=== PATIENT | male | born 1940 | race African-American/Black ===

== ENCOUNTER 2017-12-07 15:32 | Inpatient (IN) | payer OTHER ==
[~2017-12-07] VITALS: Ht 180.3 cm; Wt 77.6 kg
--- NOTE | ~2017-12-07 | 2DMMODE ---
[facility] [address] [place] [address] 2 D/M-MODE ECHOCARDIOGRAM Name: RUBA LUNA Room #: 350-P ADM IN M.R.#: [id number] Admission: 12/07/17 Attend Phys: Marlon Verde MD Discharge: Date of : 38 Date of Service: 12/08/17 1141 Report #: [id number] THIS REPORT FOR: //name// APPROVED REPORT Study performed: 12/08/2017 10:43:43 EXAM: Limited 2D, Doppler, and color-flow Echocardiogram Patient Location: Bedside Room #: 350 Status: routine BSA: 1.77 HR: 68 bpm BP: 313/79 mmHg Rhythm: RBBB/PVC's Other Information Study Quality: Adequate Indications Follow-up ABB echo for Stroke. HX: Cardiomyopathy, pericardial effusion, PE, Hypertension, diabetes, HLP. (Complete echo done 09/01/17) Echo Enhancing Agent Indication: Rule out Shunt Agent(s) / Amount(s) Used: Agitated Saline 6 cc 2D Dimensions IVSd: 9.36 (7-11mm) LVDd: 64.53 mm PWd: 14.82 (7-11mm) LVDs: 46.62 (25-40mm) Aortic Valve AoV Peak Arsenio.: 2.43 m/s AO Peak Gr.: 23.70 mmHg AO Mean Gr.: 12.96 mmHg AO V2 Mean: 1.74 m/s AO V2 VTI: 48.17 cm Tricuspid Valve TR Peak Arsenio.: 2.57 m/s RAP Estimate: 5.00 mmHg TR Peak Gr.: 26.47 mmHg PA Pressure: 31.00 mmHg [facility] [address] [place] [address] 2 D/M-MODE ECHOCARDIOGRAM Name: RUBA LUNA Room #: 350-P ADM IN ..#: [id number] Admission: 12/07/17 Attend Phys: Marlon Verde MD Discharge: Date of : 38 Date of Service: 12/08/17 1141 Report #: [id number] Left Ventricle Left ventricle is dilated. Regional wall motion abnormalities are noted. Left ventricular systolic function is moderate to severely decreased. LVEF is 30-35%. Right Ventricle The right ventricle is normal size. Atria No shunting noted by contrast bubble injection. Aortic Valve Aortic valve leaflets are moderately thickened and calcified. Trace aortic regurgitation. There is a mild decrease in aortic valve excursion with a peak gradient of 24mmHg and a mean of 13mmHg. Mitral Valve Mitral valve leaflets are mildly thickened. Mild mitral regurgitation. No evidence of mitral valve stenosis. Tricuspid Valve The tricuspid valve is normal in structure. Mild tricuspid regurgitation. Estimated PAP is 30-35mmHg. Great Vessels IVC is normal in size and collapses >50% with inspiration. Pericardium Small pericardial effusion. <Conclusion> Left ventricle is dilated. Regional wall motion abnormalities are noted. LVEF is 30-35%. No shunting noted by contrast bubble injection. Aortic valve leaflets are moderately thickened and calcified. Trace aortic regurgitation. There is a mild decrease in aortic valve excursion with a peak gradient of 24mmHg and a mean of 13mmHg. Mitral valve leaflets are mildly thickened. Mild mitral regurgitation. The tricuspid valve is normal in structure. [facility] [place] [address] 2 D/M-MODE ECHOCARDIOGRAM Name: RUBA LUNA Room #: 350-P ADM IN M.R.#: [id number] Admission: 12/07/17 Attend Phys: Marlon Verde MD Discharge: Date of : 38 Date of Service: 12/08/17 114 Report #: [id number] Mild tricuspid regurgitation. Estimated PAP is 30-35mmHg. Small pericardial effusion. <ELECTRONICALLY SIGNED> By: Perry Schofield MD 12/08/17 114 40 40 Perry Schofield MD /INF
--- NOTE | ~2017-12-07 | HC ---
[facility] [place] [address] [address] CONSULTATION Name: RUBA LUNA Room #: 350-P ADM IN M.R.#: [id number] Admission: 12/07/17 Attend Phys: Marlon Verde MD Discharge: Date of : 38 Report #: [id number] THIS REPORT FOR: //name// CC: Marlon Verde [facility] physician/PCP HISTORY OF PRESENT ILLNESS: The patient is a 77-year-old male who was making dinner with his daughter when he suddenly had slurred speech and left arm weakness. As the patient was en route, EMS noted a left facial droop. The patient has a history of pancreatic cancer and does not receive treatment for his condition. He is on Xarelto and in the Emergency Room he had a CT scan of the head and an MRI of the head. The MRI of the head demonstrated an acute infarction involving the posterior temporal and occipital lobe with associated edema, some cortical petechial hemorrhage was seen within the occipital lobe, punctate cortical infarcts were seen in the contralateral right occipital lobe. Punctate lacunar infarcts were seen in the left periventricular white matter. Subtle right mid brain infarct of unknown etiology was seen. The radiologist recommended a repeat scan in 3 months to rule out the possibility of an underlying mass. Last night, the nurse called me stating that the patient seemed to have more slurred speech. I asked for a repeat CT scan head. There was no significant change. This morning, the patient is able to carry on a limited conversation. His speech seems clear. PAST MEDICAL HISTORY: DVT, pancreatic cancer, hypertension, hyperlipidemia. PAST SURGICAL HISTORY: Unremarkable. MEDICATIONS: Levemir 8 units at bedtime, Xarelto 15 mg b.i.d., Coreg 6.25 mg b.i.d., Zocor 40 mg in the evening, Zestril 30 mg daily, loperamide 2 mg as needed, vitamin D 50,000 units daily, Bee Pollen 550 mg daily, vitamin B12 1000 mcg IM daily, fish oil 1000 mg daily, multivitamin daily. ALLERGIES: None. PHYSICAL EXAMINATION: VITAL SIGNS: Temperature is 36.7, pulse rate 83, respiratory rate 20, blood pressure 131/79, bedside pulse oximetry 100% on 2 liters. NEUROLOGIC: Cranial nerves 2-12 are grossly intact. The patient has a right gaze preference. Motor exam demonstrates a moderate right hemiparesis with the arm more affected than the leg. Reflexes demonstrate a left reflex preponderance. Coordination and gait were not tested. LABORATORY DATA: Hematology: White blood cell count 6.3, hemoglobin 7.8, [place] [id number] CONSULTATION Name: RUBA LUNA Room #: 350-[facility] IN ..#: [id number] Admission: 12/07/17 Attend Phys: Marlon Verde MD Discharge: Date of : 38 Report #: [id number] hematocrit 23.6, MCV 87.4, platelet count 152,000. PT 15.7, INR 1.5. Chemistry: Sodium 144, potassium 3.3, chloride 107, carbon dioxide 25, BUN 13, creatinine 1, GFR 88, glucose 107, calcium 8.6. IMPRESSION AND PLAN: This patient has had a left temporal/occipital lobe infarct. There is evidence of intraparenchymal hemorrhage. Xarelto is on hold. At this point, a stroke workup should be done and as the stroke involves the posterior circulation, the next step would be an MRA of the head and neck and echocardiogram. I have also ordered a lipid profile. Therapies have already been ordered. I thank you for your kind referral of this patient and we will continue to follow him with you. <ELECTRONICALLY SIGNED> By: Connie Trujillo DO 12/09/17 1115 1023 2308 Connie Trujillo DO /nt
--- NOTE | ~2017-12-07 | HC ---
[facility] [place] [address] CONSULTATION Name: RUBA LUNA Room #: 350-P ADM IN M.R.#: [id number] Admission: 12/07/17 Attend Phys: Marlon Verde MD Discharge: Date of : 38 Report #: [id number] THIS REPORT FOR: //name// CC: Marlon Verde MD [facility] physician/PCP Connie Card MD REASON FOR CONSULTATION: History of pancreatic cancer and recent stroke. HISTORY OF PRESENT ILLNESS: The patient is a very pleasant 77-year-old gentleman who I originally met back in January of last year. At that time, he has been found to have a pancreatic head mass at [facility] measuring 4 x 3.5 cm. A fine needle aspirate done at in 02/22 revealed cells favoring adenocarcinoma. His CA 19-9 was greater than 17,000 on 03/03 when I first saw him. We also did a PET scan that unfortunately showed consistent changes with liver metastasis and possible lymph node involvement. At that time, he decided he would favor towards comfort measures and nontraditional therapy. In May of last year, he had an increase in size. The patient was admitted to the hospital because of difficulties with been found to have slurred speech and left-sided weakness at home. He is brought to the hospital, was found to have changes on imaging consistent with a stroke. They had noticed some cortical petechial hemorrhaging within the occipital lobe and also apparent acute infarcts involving the posterior temporal and occipital lobe with associated edema. There was suggestion for repeat scan in 3 months to rule out possible underlying mass. He had a repeat CT head after admission that showed no significant change. At this time, the patient is up in the main hospital floor. He is having trouble speaking. He is also trying to use a bedside commode during initial part of our exam. The patient states that he is having some head pain. Does not have any shortness of air. Does not have any nausea. It is difficult to understand, but I believe that is accurate. REVIEW OF SYSTEMS: Seems to sedated. Prior to admission, he has not had any fevers or chills. There had been some diarrhea. Note that a C. diff is negative in the last 24 hours. No dysuria. His sugars have been okay. PAST MEDICAL HISTORY: Notable for the history of the metastatic pancreatic cancer being treated with nontraditional therapies, also his history is notable for the finding of acute pulmonary embolism back in May. At that time, he was begun on Lovenox and is somewhat later date is switched to Xarelto. Recently, he had an acute DVT found in both legs on 11/29/2017 because of this we switched to Lovenox instead. He also in the past has had an IVC filter placed recently. He also has a history of hyperlipidemia, prostate cancer with completion of therapy in 08/2016, followed by Dr. Gómez Card, also has history of diabetes mellitus type 2, osteoarthritis, GERD, also has a history of an elevated bilirubin in the past. Also, because of the clots in spite of Lovenox and then [facility] [address] [place] [address] CONSULTATION Name: RUBA LUNA Room #: 350-P ADM IN M.R.#: [id number] Admission: 12/07/17 Attend Phys: Marlon Verde MD Discharge: Date of : 38 Report #: [id number] Xarelto, we added aspirin to the Lovenox. FAMILY HISTORY: Noncontributory at this point. SOCIAL HISTORY: He had been at home with family. PHYSICAL EXAMINATION: GENERAL: The patient appears his stated age. He is lying in a hospital bed with slurred speech and some lack of attention when you on his left side, better on the right side. VITAL SIGNS: Recent height is 5 feet 11 inches or 180.3 cm, weight 171 pounds or 77.6 kilograms. Blood pressure is 122/74, temperature 98, pulse 105. NEUROLOGIC: The patient is awake, having trouble communicating with speech difficulties. He also appears to have some left-sided weakness and also left-sided inattention. LUNGS: Appear to be clear. CARDIOVASCULAR: Heart appears to be regular. ABDOMEN: Slightly obese. EXTREMITIES: Without clubbing, cyanosis. There is some trace edema. LABORATORY DATA: Here on this admit, notable for normal BUN of 10, creatinine of 1.0, bilirubin is normal, calcium slightly low at 8.1. Iron 33, percent sat 24. Protime slightly elevated at 15.7 with an INR of 1.5, APTT 36.9. White count on admission was 7.9, today 20.9, hemoglobin 8.1 today 8.9, platelet count has been 146 range total time, differential some slight increase in neutrophils and decrease in lymphocytes. Ferritin 1808. Vitamin B12 of 2710. C. diff was negative. IMAGING: During this admit includes CTs of the head and MRAs of the [place] etc, also MRI head. These as mentioned above showed the acute infarction involving the posterior temporal and occipital lobe with associated edema. They suggested follow up in 3 months for possible post-contrast study to exclude the possible underlying mass. ASSESSMENT AND PLAN: 1. History of stage IV pancreatic cancer since 01/2017. He has been on observation with the patient taking nontraditional therapy. Given the patient's performance status at this time, I would not suggest traditional therapy. The patient would appear to be a good hospice candidate, have not discussed with family, though. 2. History of pulmonary embolism in 05/2017, deep venous thrombosis in 11/2017 with IVC filter placed, given acute [employer] hemorrhage, would not administer anticoagulants at this time, does have IVC filter in place per report. 3. Cerebrovascular accident with hemorrhage and questionable underlying mass. I agree with stopping anticoagulation, rehabilitation has to see. I agree with repeat consideration of MRI of head in 2 to 3 months, may need to consider [address] [address] CONSULTATION Name: RUBA LUNA Room #: 350-P ADM IN M.R.#: [id number] Admission: 12/07/17 Attend Phys: Marlon Verde MD Discharge: Date of : 38 Report #: [id number] speech evaluation as the patient recovers. 4. Anemia. Hemoglobin 8.9 range and stable. 5. Diabetes mellitus type 2, defer to others. Continue monitoring. 6. DNR status. I agree. 7. Ejection fraction of 30% to 35%. Adjust medications as needed. 8. Hyperlipidemia. Defer to others. 9. Hypertension history. Defer to others. 10. Gastroesophageal reflux disease. Defer to others. 11. History of prostate cancer, not known to be recurrent. Defer to others. <ELECTRONICALLY SIGNED> By: Wilson Guevara MD 12/12/17 0810 0742 1844 Wilson Guevara MD /claire
--- NOTE | ~2017-12-07 | EKG ---
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
--- NOTE | ~2017-12-07 | EKG ---
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 Right bundle branch block Motion artifact No previous ECG available for comparison Electronically Signed On 12-08-2017 8:18:52 CDT by Pérez Marina [email or web address] <ELECTRONICALLY SIGNED> By: Pérez Marina MD 12/08/17 0818 1601 1601 Pérez Marina MD /DYAN
[2017-12-07 15:55] LABS: HEMATOCRIT 23.9 % (42.0-52.0); HEMOGLOBIN 8.1 gm/dL (14.0-18.0); MCH 29.6 pg (26.0-34.0); MCHC 33.7 g/dL (28.0-37.0); MCV 87.9 fL (80.0-100.0); RBC 2.72 mil/uL (4.50-6.00); RDW 15.3 % (10.5-14.5); WBC 7.9 thou/uL (4.0-11.0)
[2017-12-07 15:58] VITALS: BP 145/86
[2017-12-07 16:08] LABS: ANION GAP 7 mmol/L (7-16); BUN 15 mg/dL (7-18); CALCIUM 8.6 mg/dL (8.5-10.1); CHLORIDE 104 mmol/L (98-107); CO2 26 mmol/L (21-32); CREATININE 1.2 mg/dL (0.7-1.3); GLUCOSE 126 mg/dL (74-106); POTASSIUM 3.3 mmol/L (3.5-5.1); SODIUM 137 mmol/L (136-145)
[2017-12-07 16:17] LABS: TROPONIN-I <0.06 ng/mL (<0.06)
[2017-12-07 16:27] LABS: APTT 36.9 Seconds (24.5-32.8); INR 1.5; PROTIME 15.7 Seconds (9.3-11.4)
[2017-12-07 16:48] LABS: POC CA IONIZED 4.6 mg/dL (4.5-5.3); POC CREATININE 0.9 mg/dL (0.6-1.3); POC HEMOGLOBIN 8.5 g/dL (14.0-18.0); POC POTASSIUM 3.3 mmol/L (3.5-5.1)
[2017-12-07 19:58] VITALS: BP 149/82
[2017-12-07 20:14] VITALS: BP 153/85
[2017-12-07 20:35] VITALS: BP 147/88
[2017-12-07 23:25] VITALS: BP 138/73
[2017-12-08 04:30] VITALS: BP 147/87
[2017-12-08 06:12] LABS: HEMATOCRIT 23.6 % (42.0-52.0); HEMOGLOBIN 7.8 gm/dL (14.0-18.0); MCHC 33.2 g/dL (28.0-37.0); MCV 87.4 fL (80.0-100.0); RBC 2.7 mil/uL (4.50-6.00); RDW 15.3 % (10.5-14.5); WBC 6.3 thou/uL (4.0-11.0)
[2017-12-08] MEDS ORDERED: LEVEMIR SUBQ (06:16)
[2017-12-08] MEDS ORDERED: LISINOPRIL20 MG PO (06:17)
[2017-12-08] MEDS ORDERED: XARELTO15 MG PO (06:17)
[2017-12-08] MEDS ORDERED: COREG6.25 MG PO (06:17)
[2017-12-08] MEDS ORDERED: SIMVASTATIN40 MG PO (06:17)
[2017-12-08] MEDS ORDERED: VITAMIN D5000 UNIT PO (06:18)
[2017-12-08] MEDS ORDERED: LOPERAMIDE 2 MG2 M1 PO (06:18)
[2017-12-08] MEDS ORDERED: FISH OIL 1,001000 M2 PO (06:19)
[2017-12-08] MEDS ORDERED: B12INJ IM (06:19)
[2017-12-08] MEDS ORDERED: BEE POLLEN550 MG PO (06:19)
[2017-12-08] MEDS ORDERED: UNICOMPLEX M TA1 TA1 PO (06:20)
[2017-12-08 06:21] LABS: CALCIUM 8.6 mg/dL (8.5-10.1); POTASSIUM 3.3 mmol/L (3.5-5.1)
[2017-12-08 07:39] VITALS: BP 131/79
[2017-12-08 10:55] LABS: CHOLESTEROL 116 mg/dL (<200); HDL CHOLESTEROL 18 mg/dL (>40); LDL CHOLESTEROL 79 mg/dL (<100); TC:HDL 6.4 Ratio (Not establshd); TRIGLYCERIDE 97 mg/dL (<150); VLDL 19 mg/dL (<40)
[2017-12-08 16:58] VITALS: BP 137/70
[2017-12-08 19:22] VITALS: BP 149/91
[2017-12-09] VITALS: BP 137/76
[2017-12-09 03:04] VITALS: BP 147/109
[2017-12-09 06:15] LABS: ABSOLUTE NEUTROPHILS 5.3 thou/uL (1.4-8.2); BASOPHILS 0.5 % (0.0-2.0); EOSINOPHILS 1.4 % (0.0-3.0); HEMATOCRIT 26.4 % (42.0-52.0); HEMOGLOBIN 8.8 gm/dL (14.0-18.0); MCH 29.1 pg (26.0-34.0); MCHC 33.4 g/dL (28.0-37.0); MCV 87.1 fL (80.0-100.0); MONOCYTES 6.4 % (1.0-8.0); PLATELET COUNT 183 thou/uL (150-400); POLYS 78.7 % (36.0-66.0); RBC 3.03 mil/uL (4.50-6.00); WBC 6.7 thou/uL (4.0-11.0)
[2017-12-09 06:21] LABS: OBSERVED RETIC COUNT 3.01 % (0.6-2.6)
[2017-12-09 06:29] LABS: CALCIUM 8.6 mg/dL (8.5-10.1); CREATININE 0.8 mg/dL (0.7-1.3); POTASSIUM 3.2 mmol/L (3.5-5.1)
[2017-12-09 06:30] VITALS: BP 142/90
[2017-12-09 06:34] LABS: % SATURATION 24 % (20-39); IRON 33 ug/dL (65-175); TIBC 138 ug/dL (250-450)
[2017-12-09 07:35] LABS: FERRITIN 1808 ng/mL (26-388)
[2017-12-09 12:13] VITALS: BP 156/82
[2017-12-09 19:18] VITALS: BP 130/74
[2017-12-10 03:15] VITALS: BP 147/86
[2017-12-10 06:35] LABS: HEMATOCRIT 27.4 % (42.0-52.0); HEMOGLOBIN 9.2 gm/dL (14.0-18.0); MCH 29.1 pg (26.0-34.0); MCHC 33.4 g/dL (28.0-37.0); MCV 87.2 fL (80.0-100.0); RBC 3.14 mil/uL (4.50-6.00); RDW 15.1 % (10.5-14.5); WBC 7.1 thou/uL (4.0-11.0)
[2017-12-10 06:46] LABS: CALCIUM 8.9 mg/dL (8.5-10.1); CREATININE 0.9 mg/dL (0.7-1.3); MAGNESIUM 1.9 mg/dL (1.8-2.4); POTASSIUM 3.9 mmol/L (3.5-5.1)
[2017-12-10 07:49] VITALS: BP 156/98
[2017-12-10 11:40] VITALS: BP 159/92
[2017-12-10 15:03] VITALS: BP 146/92
[2017-12-10 19:55] VITALS: BP 171/96
[2017-12-10 23:45] VITALS: BP 167/94
[2017-12-11 03:20] VITALS: BP 122/74
[2017-12-11 05:51] LABS: HEMATOCRIT 27.5 % (42.0-52.0); HEMOGLOBIN 8.9 gm/dL (14.0-18.0); MCH 28.3 pg (26.0-34.0); MCHC 32.4 g/dL (28.0-37.0); MCV 87.2 fL (80.0-100.0); RBC 3.16 mil/uL (4.50-6.00); RDW 15.2 % (10.5-14.5); WBC 20.9 thou/uL (4.0-11.0)
[2017-12-11 06:04] LABS: CALCIUM 8.1 mg/dL (8.5-10.1); MAGNESIUM 1.8 mg/dL (1.8-2.4); POTASSIUM 3.6 mmol/L (3.5-5.1)
[2017-12-11 07:17] VITALS: BP 133/89
[2017-12-11 16:11] VITALS: BP 123/78
[2017-12-11 19:20] VITALS: BP 152/99
[2017-12-12 04:50] VITALS: BP 158/85
[2017-12-12 06:14] LABS: HEMATOCRIT 26.1 % (42.0-52.0); HEMOGLOBIN 8.6 gm/dL (14.0-18.0); MCH 28.8 pg (26.0-34.0); MCHC 32.9 g/dL (28.0-37.0); MCV 87.5 fL (80.0-100.0); RBC 2.98 mil/uL (4.50-6.00); RDW 15.8 % (10.5-14.5); WBC 10.9 thou/uL (4.0-11.0)
[2017-12-12 06:23] LABS: CALCIUM 8.6 mg/dL (8.5-10.1); CREATININE 0.9 mg/dL (0.7-1.3); MAGNESIUM 1.9 mg/dL (1.8-2.4); POTASSIUM 3.3 mmol/L (3.5-5.1)
[2017-12-12 07:30] VITALS: BP 158/95
[2017-12-12 10:47] LABS: DIRECT BILIRUBIN 0.2 mg/dL (<0.1-0.3); TOTAL BILIRUBIN 0.5 mg/dL (<0.1-1.0); TOTAL PROTEIN 6.6 g/dL (6.4-8.2)
[2017-12-12 16:12] VITALS: BP 152/85
[2017-12-12 19:10] VITALS: BP 107/53
[2017-12-13 04:00] VITALS: BP 131/73
[2017-12-13 06:01] LABS: MCH 29.1 pg (26.0-34.0)
[2017-12-13 06:03] LABS: HEMATOCRIT 26.1 % (42.0-52.0); HEMOGLOBIN 8.7 gm/dL (14.0-18.0); MCHC 33.1 g/dL (28.0-37.0); MCV 87.8 fL (80.0-100.0); RBC 2.97 mil/uL (4.50-6.00); RDW 15.8 % (10.5-14.5); WBC 10.2 thou/uL (4.0-11.0)
[2017-12-13 06:58] LABS: CALCIUM 8.5 mg/dL (8.5-10.1); CREATININE 0.8 mg/dL (0.7-1.3); MAGNESIUM 1.9 mg/dL (1.8-2.4); POTASSIUM 3.6 mmol/L (3.5-5.1)
[2017-12-13 07:29] VITALS: BP 142/91
[2017-12-13 16:22] VITALS: BP 118/71
[2017-12-13 19:26] VITALS: BP 105/67
[2017-12-14 03:46] VITALS: BP 154/89
[2017-12-14 07:37] VITALS: BP 134/77
[2017-12-14 16:15] VITALS: BP 100/55; BP 93/54
[2017-12-14 19:32] VITALS: BP 129/73
[2017-12-15 05:51] LABS: HEMATOCRIT 26.7 % (42.0-52.0); HEMOGLOBIN 9.1 gm/dL (14.0-18.0); MCH 29.5 pg (26.0-34.0); MCV 86.8 fL (80.0-100.0); RBC 3.08 mil/uL (4.50-6.00); RDW 15.6 % (10.5-14.5); WBC 12.3 thou/uL (4.0-11.0)
[2017-12-15 05:55] VITALS: BP 142/77
[2017-12-15 05:55] LABS: CALCIUM 8.5 mg/dL (8.5-10.1); CREATININE 0.9 mg/dL (0.7-1.3); POTASSIUM 3.3 mmol/L (3.5-5.1)
[2017-12-15 06:53] VITALS: BP 133/72
[2017-12-15 13:50] VITALS: BP 101/59
[2017-12-15] MEDS ORDERED: OXYCODONE HCL 55 MG PO (15:22)
[2017-12-15] MEDS ORDERED: PANCREAZE DR 11 EAC2 PO (15:23)
[2017-12-15] MEDS ORDERED: COLESTID1 GM PO (15:23)
== END 2017-12-15 15:28 | disposition hospice, home (50) | DRG 64 ==
LOC: ER 15:32 → EROBS 18:34 → 3W 18:34 → 4E 12-15 05:47
PROVIDERS: Emergency Medicine; Hospitalist; Internal Medicine; Nurse Practitioner; Nurse Practitioner Family; Psychiatry & Neurology Neurology
DX: I61.8 Other nontraumatic intracerebral hemorrhage (principal); E43 Unspecified severe protein-calorie malnutrition; G81.94 Hemiplegia, unspecified affecting left nondominant side; E78.5 Hyperlipidemia, unspecified; E11.9 Type 2 diabetes mellitus without complications; M19.90 Unspecified osteoarthritis, unspecified site; K21.9 Gastro-esophageal reflux disease without esophagitis; D64.9 Anemia, unspecified; Z66 Do not resuscitate; E87.6 Hypokalemia; M62.84 Sarcopenia; R13.10 Dysphagia, unspecified; I50.9 Heart failure, unspecified; I11.0 Hypertensive heart disease with heart failure; K52.9 Noninfective gastroenteritis and colitis, unspecified; Z51.5 Encounter for palliative care; Z86.718 Personal history of other venous thrombosis and embolism; Z85.07 Personal history of malignant neoplasm of pancreas; Z85.46 Personal history of malignant neoplasm of prostate; Z95.828 Presence of other vascular implants and grafts
CPT/HCPCS: 10779; 10879